=== PATIENT | female | born 1980 | race Caucasian/White ===

== ENCOUNTER 2017-05-29 05:31 | Day surgery (SDC) | payer OTHER ==
[~2017-05-29] VITALS: Ht 165.1 cm; Wt 67.6 kg
[~2017-05-29 05:31] MED LIST: CETI10CA PO; DIPH25CA61 PO; FLUT9.9S NAS
[2017-05-29 06:20] LABS: HCG UR LOT HCG7030192
[2017-05-29 06:24] LABS: HCG UR OBC PASS
[2017-05-29] MEDS ORDERED: LACTATED RINGERS 1,000 ML IV SCH (06:46)
[2017-05-29 06:47] VITALS: BP 138/79
[2017-05-29] MEDS ORDERED: BUPIVACAINE/PF 0.25% ONE (06:56)
[2017-05-29] MEDS ORDERED: HEPARIN 1,000 UNITS/ML, 10ML ONE (06:56)
[2017-05-29] MEDS ORDERED: EPINEPHRINE 1 MG/ML, 1ML ONE (06:56)
[2017-05-29] MEDS ORDERED: HYDROmorphone 1 MG/ML, 1ML ONE (07:08)
[2017-05-29] MEDS ORDERED: FENTANYL PF 100 MCG/2ML ONE ×3 (07:08→09:45)
[2017-05-29] MEDS ORDERED: MIDAZOLAM 1 MG/ML, 2ML ONE (07:08)
[2017-05-29] MEDS ORDERED: PROPOFOL 10 MG/ML, 20ML ONE (07:13)
[2017-05-29] MEDS ORDERED: ROCURONIUM 10MG/ML,5ML ONE (07:23)
[2017-05-29] MEDS ORDERED: NEOSTIGMINE 1 MG/ML, 10ML ONE (07:23)
[2017-05-29] MEDS ORDERED: CEFOTETAN 1 GM ONE (07:23)
[2017-05-29] MEDS ORDERED: ONDANSETRON 2MG/ML, 2ML ONE ×2 (07:23→09:45)
[2017-05-29] MEDS ORDERED: DEXAMETHASONE 4 MG/ML, 1ML ONE (07:23)
[2017-05-29] MEDS ORDERED: GLYCOPYRROLATE 0.4 MG/2 ML, 2ML ONE (07:23)
[2017-05-29] MEDS ORDERED: SUCCINYLCHOLINE 20 MG/ML, 10ML ONE (07:23)
[2017-05-29] MEDS ORDERED: SCOPOLAMINE 1MG PATCH TD ONE (07:54)
[2017-05-29] MEDS ORDERED: LABETALOL 5MG/ML, 20ML IV PRN (08:00)
[2017-05-29] MEDS ORDERED: ACETAMINOPHEN 325 MG TABLET PO PRN (08:00)
[2017-05-29] MEDS ORDERED: ONDANSETRON 2MG/ML, 2ML IVPush PRN (08:00)
[2017-05-29] MEDS ORDERED: METOCLOPRAMIDE 5 MG/ML, 2ML IV PRN (08:00)
[2017-05-29] MEDS ORDERED: HYDROmorphone 1 MG/ML, 1ML IV PRN (08:00)
[2017-05-29] MEDS ORDERED: OXYcodone 5 MG/5 ML ORAL.SOL UDC PO PRN (08:00)
[2017-05-29] MEDS ORDERED: hydrALAzine 20 MG/ML, 1ML IV PRN (08:00)
[2017-05-29] MEDS ORDERED: FLUORESCEIN SODIUM 500 MG/5 ML ONE (08:52)
[2017-05-29] MEDS ORDERED: ACETAMINOPHEN 650 MG/20.3 ML UDC ONE (09:36)
[2017-05-29] MEDS ORDERED: ACETAMINOPHEN 325 MG TABLET ONE (09:37)
[2017-05-29] MEDS ORDERED: OXYcodone 5 MG/5 ML ORAL.SOL UDC ONE (09:37)
[2017-05-29] MEDS: FENTANYL PF 100 MCG/2ML IV PRN ×4 (09:43→10:35)
[2017-05-29] MEDS ORDERED: IBUPROFEN 600 MG TABLET PO PRN (11:30)
[2017-05-29] MEDS ORDERED: IBUPROFEN 600 MG TABLET ONE (12:02)
[2017-05-29] MEDS ORDERED: OXYcodone/APAP 5/325MG TABLET ONE (13:36)
[2017-05-29] MEDS ORDERED: OXYcodone/APAP 5/325MG TABLET PO PRN (14:00)
== END 2017-05-29 16:50 ==
LOC: OUT 05:31
PROVIDERS: ATTEND Specialist
DX: N80.0 Endometriosis of uterus (principal); K63.89 Other specified diseases of intestine; Z98.890 Other specified postprocedural states
CPT/HCPCS: 36415; 58571; 58662; 81025; 86850; 86900; 88307; J0171; J0330; J1100; J1170; J1644; J2250; J2405; J2704; J2710; J3010; J3490; J7120; S2900; S0074